=== PATIENT | male | born 1970 | race Caucasian/White ===

== ENCOUNTER 2018-10-11 14:03 | Emergency (ER) | payer BC, OTHER ==
[2018-10-11 14:14] VITALS: BP 130/86
[2018-10-11] MEDS ORDERED: TDAP ADULT 0.5 ML INJ (BOOSTRIX) IM ONE (14:31)
--- NOTE | 2018-10-11 14:32 | EDPHY ---
H & P Time Seen by Provider: 10/11/18 14:12 HPI/ROS: CHIEF COMPLAINT: Splinter left hand HISTORY OF PRESENT ILLNESS: 48-year-old male with out-of-date tetanus was picking up a piece of wood when he sustained a splinter to the palmar aspect left hand overlying the 2nd MCP. He picked at the area with an [employer]act[employer] blade was unable to remove it. Occurred shortly prior to arrival. PRIMARY CARE PROVIDER: REVIEW OF SYSTEMS: 10 systems reviewed and are negative with exception of illness mentioned in the history of present illness PHYSICAL EXAM (Prior to examination, patient consented to physical exam, hands were washed and my usual and customary physical exam procedures followed) 1) GENERAL: Well-developed, well-nourished, alert and oriented. Appears to be in no acute distress. 2) HEAD: Normocephalic 3) HEENT: sclera anicteric 4) LUNGS: Breathing comfortably. 5) SKIN: Left hand palmar aspect overlying the 2nd MCP he has a through and through splinter with palpable small would component 6) MUSCULOSKELETAL: No signs of infection. No lymphangitic streaking. No crepitus. Negative kanavel Smoking Status: Never smoked Constitutional: Initial Vital Signs Temperature (C) 36.5 C 10/11/18 14:06 Heart Rate 76 10/11/18 14:06 Respiratory Rate 16 10/11/18 14:06 Blood Pressure 130/86 H 10/11/18 14:06 O2 Sat (%) 97 10/11/18 14:06 O2 Delivery Mode Room Air Allergies/Adverse Reactions: No Known Allergies Allergy (Verified 10/11/18 14:06) Home Medications: Medication Instructions Recorded NK [No Known Home Meds] 10/11/18 MDM/Departure - MDM Procedures: Procedure: Foreign body removal: Indication: Foreign body left hand Indications risks benefits discussed with patient he consented. Area is prepped draped normal sterile fashion, 1% lidocaine with epinephrine administered to the puncture wound sites. With a a scalpel I was able to extend the puncture sites by 2 mm, visualize the foreign body and remove it with hemostats. Area was copiously irrigated, dressed with antibiotic ointment and sterile dressing. Patient tolerated procedure well - Depart Disposition: Home, Routine, Self-Care Clinical Impression: Foreign body of left hand Condition: Good Instructions: Soft Tissue Foreign Body (ED) Additional Instructions: Return to the ER if you develop redness, swelling, discharge, warmth to the wound, red streaks going up your arm, or any other symptoms that concern you. Referrals: RHONDA VELÁSQUEZ [Primary Care Provider] - 1-2 days without fail
== END 2018-10-11 14:40 | disposition home or self-care (01) ==
PROC: 0JCK0ZZ Extirpation of Matter from Left Hand Subcutaneous Tissue and Fascia, Open Approach (ICD-10-PCS; principal; 2018-10-11)
DX: S60.552A Superficial foreign body of left hand, initial encounter (principal); Z23 Encounter for immunization; W45.8XXA Other foreign body or object entering through skin, initial encounter; Y93.89 Activity, other specified; Y92.9 Unspecified place or not applicable; Y99.9 Unspecified external cause status

== ENCOUNTER → 2019-01-07 | Outpatient (CLI) | payer BC | LOC: BMCIMAGING 12:06 | PROVIDERS: ATTEND Emergency Medicine | DX: M25.572 Pain in left ankle and joints of left foot (principal) ==